=== PATIENT | female | born 1940 | race Caucasian/White ===

== ENCOUNTER 2017-03-02 19:48 | Emergency (ER) | payer OTHER ==
[2017-03-02 19:48] VITALS: BP 141/60; PULSE 77; RESP 20; TEMP 98.5; O2SAT 94
[~2017-03-02 19:48] MED LIST: ARIC5TAB PO; CEPH-460 PO; HYDR-3533 PO; LORA-373 PO; MEDR4PAK PO; NAME5TAB2 PO; SIMV20TA PO; VENTAER INH; VITA10007 PO; ZITH250T PO
[2017-03-02] MEDS ORDERED: SODIUM CHLORIDE 0.9% FLUSH 10 ML FLUSH IVF PRN (20:00)
[2017-03-02 20:08] LABS: AUTOMATED NEUTROPHIL # 3.9 TH/MM3 (1.8-7.7); BASOPHIL # 0.1 TH/MM3 (0-0.2); EOSINOPHIL # 0.1 TH/MM3 (0-0.4); EOSINOPHIL % 1.5 % (0.0-4.0); HEMATOCRIT 37.2 % (35.0-46.0); HEMO FLAGS DIFF FINAL; LYMPH % 29.5 % (9.0-44.0); MEAN CELL VOLUME 91.5 FL (80.0-100.0); MEAN CORPUSCULAR HEMOGLOBIN 30.7 PG (27.0-34.0); MEAN CORPUSCULAR HGB CONC 33.6 % (32.0-36.0); MONO % 10.6 % (0.0-8.0); NEUT % 57.4 % (16.0-70.0); PLATELET COUNT 226 TH/MM3 (150-450); RED BLOOD COUNT 4.07 MIL/MM3 (4.00-5.30); RED CELL DISTRIBUTION WIDTH 12.9 % (11.6-17.2); WHITE BLOOD COUNT 6.8 TH/MM3 (4.0-11.0)
[2017-03-02 20:14] LABS: CHLORIDE 107 MEQ/L (98-107); POTASSIUM 5.2 MEQ/L (3.5-5.1); SODIUM (NA) 140 MEQ/L (136-145)
[2017-03-02 20:18] LABS: ANION GAP 11 MEQ/L (5-15); BICARBONATE 22.4 MEQ/L (21.0-32.0); BLOOD UREA NITROGEN 40 MG/DL (7-18)
[2017-03-02 20:21] LABS: ALT (GPT) 26 U/L (10-53); AST (GOT) 33 U/L (15-37); GLOMERULAR FILTRATION RATE 29 ML/MIN (>89)
[2017-03-02 20:23] LABS: TOTAL BILIRUBIN ADULT 0.3 MG/DL (0.2-1.0)
[2017-03-02 20:24] LABS: ALKALINE PHOSPHATASE 78 U/L (45-117)
--- NOTE | 2017-03-02 20:26 | RADHPO ---
EXAM DATE/TIME: 03/02/2017 20:00 [facility] COMPARISON: No previous studies available for comparison. INDICATIONS : Lightheaded, finger numbness, history intercranial hemmorage RADIATION DOSE: 56.82 CTDIvol (mGy) MEDICAL HISTORY : None SURGICAL HISTORY : Craniotomy. Appendectomy.bladder surgery ENCOUNTER: Initial ACUITY: 1 day PAIN SCALE: 4/10 TECHNIQUE: Multiple contiguous axial images were obtained of the head. Using automated exposure control and adj ustment of the mA and/or kV according to patient size, radiation dose was kept as low as reasonably a chievable to obtain optimal diagnostic quality images. FINDINGS: CEREBRUM: The ventricles are normal for age. No evidence of midline shift, mass lesion, hemorrhage or acute in farction. No extra-axial fluid collections are seen. POSTERIOR FOSSA: The cerebellum and brainstem are intact. The 4th ventricle is midline. The cerebellopontine angle i s unremarkable. EXTRACRANIAL: The visualized portion of the orbits is intact. SKULL: The calvaria is intact. No evidence of skull fracture. CONCLUSION: Normal examination. Darien Bear MD on March 02, 2017 at 20:22 Board Certified Radiologist. This report was verified electronically.
[2017-03-02 20:27] VITALS: BP 113/59; PULSE 66; RESP 20; O2SAT 96
[2017-03-02 20:27] LABS: CREATINE KINASE 82 U/L (26-192)
--- NOTE | 2017-03-02 20:45 | PD ---
HPI . Weakness Chief Complaint: Neuro Symptoms/ Deficits Time Seen by Provider: 19:55 Travel History International Travel<30 days: No Contact w/Intl Traveler<30days: No History of Present Illness HPI Patient brought in by her daughter with a chief complaint of weakness. The daughter reports waxing and waning weakness for over a week. The daughter reports that the patient has fallen several times. The patient has previous similar symptoms related to UTI. The patient was seen by the urologist a little over a week ago and diagnosed with UTI and treated with Macrobid. She did not improve after a couple days on Macrobid. Her antibiotic was subsequently changed to Septra. She has been on the Septra for about a week. During this period time, the daughter states that the patient will have good days where she is walking without any difficulty at all. Then she will have bad days when she cannot stand up. The daughter reports that today is one of the days when the patient is too weak to stand up. The daughter reports no other associated symptoms. The daughter is unsure as to what may cause symptoms to be better 1 day and worse. There have been no obvious exacerbating or relieving factors. 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 PFSH Past Medical History Alzheimer's Disease: Yes Arthritis: Yes Asthma: No Autoimmune Disease: Yes Heart Rhythm Problems: No Cardiovascular Problems: No High Cholesterol: Yes Chest Pain: Yes Congestive Heart Failure: No COPD: Yes Cerebrovascular Accident: Yes (TIA 2010) Diabetes: No Diminished Hearing: No Gastrointestinal Disorders: No GERD: Yes Glaucoma: No Headaches: Yes Hepatitis: No Hiatal Hernia: No Hypertension: No Kidney Stones: No Musculoskeletal: No Neurologic: No Reproductive: No Respiratory: No Immunizations Current: Yes Myocardial Infarction: No Renal Failure: No Seizures: No Sleep Apnea: No Thyroid Disease: No Ulcer: Yes Menopausal: Yes Past Surgical History Abdominal Surgery: Yes (APPENDECTOMY) AICD: No Appendectomy: Yes Cardiac Surgery: No Ear Surgery: No Endocrine Surgery: Yes (appy) Eye Surgery: No Genitourinary Surgery: Yes (BLADDER SX) Gynecologic Surgery: No Neurologic Surgery: Yes (CRANIOTOMY WITH ICH AT 15 YRS OLD SP FALL FROM HORSE) Oral Surgery: No Pacemaker: No Thoracic Surgery: No Other Surgery: Yes (LEFT WRIST) Social History Alcohol Use: No Tobacco Use: No Substance Use: No Allergies-Medications (Allergen,Severity, Reaction): Coded Allergies: No Known Allergies (Unverified , 03/02/17) Reported Meds & Prescriptions Reported Meds & Active Scripts Active Reported Bactrim DS (Sulfamethoxazole-Trimethoprim) 800-160 Mg Tab 1 Tab PO BID Hydrocodone-Acetaminophen 10-325 mg Tab 1 Tab PO Q6H PRN Myrbetriq (Mirabegron) 25 Mg Tab 25 Mg PO DAILY Atorvastatin (Atorvastatin Calcium) 20 Mg Tab 20 Mg PO HS Escitalopram (Escitalopram Oxalate) 20 Mg Tab 20 Mg PO DAILY Ranitidine (Ranitidine HCl) 150 Mg Tab 150 Mg PO DAILY Namzaric (Memantine-Donepezil) 28-10 Mg Cap 1 Cap PO HS Omeprazole 40 Mg Cap 40 Mg PO DAILY Review of Systems Except as stated in HPI: all other systems reviewed are Neg General / Constitutional: No: Fever, Chills HENT: No: Rhinorrhea, Congestion Cardiovascular: No: Chest Pain or Discomfort Respiratory: No: Cough, Shortness of Breath Gastrointestinal: No: Nausea, Vomiting, Diarrhea, Loss of Appetite Neurologic: Positive: Weakness, No: Focal Abnormalities, Headache, Change in Mentation, Slurred Speech Physical Exam Narrative GENERAL: Elderly woman who is awake and alert and in no acute distress. SKIN: Warm and dry. HEAD: Atraumatic. Normocephalic. EYES: Pupils equal and round. Extraocular movements are intact. ENT: No nasal bleeding or discharge. Mucous membranes pink and moist. NECK: Trachea midline. Neck is supple. CARDIOVASCULAR: Regular rate and rhythm. Heart sounds are normal. RESPIRATORY: No accessory muscle use. Lungs are clear throughout. GASTROINTESTINAL: Abdomen soft, non-tender, nondistended. MUSCULOSKELETAL: No obvious deformities. No edema. NEUROLOGICAL: Awake and alert. Left sided facial weakness. Decreased wrinkling of the left forehead. She is able to pull herself from a lying to a sitting position using her left arm. She is able to hold both legs up off the bed equally. She has normal motor strength with plantar and dorsi flexion. Normal speech. PSYCHIATRIC: Appropriate mood and affect; insight and judgment normal. Data Data Last Documented VS Vital Signs Date Time Temp Pulse Resp B/P Pulse Ox O2 Delivery O2 Flow Rate FiO2 03/02/17 20:22 66 18 96 Nasal Cannula 2 03/02/17 19:48 98.5 141/60 Orders Electrocardiogram (03/02/17 19:55) Complete Blood Count With Diff (03/02/17 19:55) Comprehensive Metabolic Panel (03/02/17 19:55) Ckmb (Isoenzyme) Profile (03/02/17 19:55) Troponin I (03/02/17 19:55) Urinalysis - C+S If Indicated (03/02/17 19:55) Ct Brain W/O Iv Contrast(Rout) (03/02/17 19:55) Ecg Monitoring (03/02/17 19:55) Iv Access Insert/Monitor (03/02/17 19:55) Oximetry (03/02/17 19:55) Sodium Chloride 0.9% Flush (Ns Flush) (03/02/17 20:00) Cath For Specimen (03/02/17 19:55) Labs Laboratory Tests Test 03/02/17 03/02/17 19:50 20:45 White Blood Count 6.8 TH/MM3 Red Blood Count 4.07 MIL/MM3 Hemoglobin 12.5 GM/DL Hematocrit 37.2 % Mean Corpuscular Volume 91.5 FL Mean Corpuscular Hemoglobin 30.7 PG Mean Corpuscular Hemoglobin 33.6 % Concent Red Cell Distribution Width 12.9 % Platelet Count 226 TH/MM3 Mean Platelet Volume 8.7 FL Neutrophils (%) (Auto) 57.4 % Lymphocytes (%) (Auto) 29.5 % Monocytes (%) (Auto) 10.6 % Eosinophils (%) (Auto) 1.5 % Basophils (%) (Auto) 1.0 % Neutrophils # (Auto) 3.9 TH/MM3 Lymphocytes # (Auto) 2.0 TH/MM3 Monocytes # (Auto) 0.7 TH/MM3 Eosinophils # (Auto) 0.1 TH/MM3 Basophils # (Auto) 0.1 TH/MM3 CBC Comment DIFF FINAL Differential Comment Sodium Level 140 MEQ/L Potassium Level 5.2 MEQ/L Chloride Level 107 MEQ/L Carbon Dioxide Level 22.4 MEQ/L Anion Gap 11 MEQ/L Blood Urea Nitrogen 40 MG/DL Creatinine 1.70 MG/DL Estimat Glomerular Filtration 29 ML/MIN Rate Random Glucose 99 MG/DL Calcium Level 8.6 MG/DL Total Bilirubin 0.3 MG/DL Aspartate Amino Transf 33 U/L (AST/SGOT) Alanine Aminotransferase 26 U/L (ALT/SGPT) Alkaline Phosphatase 78 U/L Total Creatine Kinase 82 U/L Troponin I LESS THAN 0.02 NG/ML Total Protein 7.4 GM/DL Albumin 3.3 GM/DL Urine Color YELLOW Urine Turbidity CLEAR Urine pH 5.5 Urine Specific [place] 1.024 Urine Protein NEG mg/dL Urine Glucose (UA) NEG mg/dL Urine Ketones NEG mg/dL Urine Occult Blood NEG Urine Nitrite NEG Urine Bilirubin NEG Urine Leukocyte Esterase NEG Urine RBC 0-2 /hpf Urine WBC 3-5 /hpf Urine Squamous Epithelial 6-8 /hpf Cells Urine Bacteria NONE /hpf Microscopic Urinalysis Comment CULT NOT INDICATED MDM Medical Decision Making Medical Screen Exam Complete: Yes Emergency Medical Condition: Yes Interpretation(s) EKG shows a normal sinus rhythm with no ST segment elevation or depression. Differential Diagnosis Differential diagnosis of weakness includes but is not limited to infection, CVA , electrolyte disturbance, renal failure, hypoglycemia, UTI, ACS, acute blood loss Narrative Course Patient presents with weakness which has waxed and waned for the last week or so. She has been recently diagnosed with a UTI and has been treated with Macrobid followed by Nazanin. CBC & BMP Diagram 03/02/17 19:50 UA is negative. Cardiac enzymes are negative. Last Impressions Head CT 03/02/171954 Signed Impressions: Service Date/Time: February 20:00 - CONCLUSION: Normal examination. Darien Bear MD No acute etiology for her symptoms has been found. The patient and her daughter are comfortable and happy with discharge to home. Diagnosis Primary Impression: Weakness Patient Instructions: General Instructions, Weakness (ED) Disposition: 01 DISCHARGE HOME Condition: Stable Jessi Boswell MD March 02, 2017 20:45
[2017-03-02 20:50] LABS: BLOOD, URINE NEG (NEG); GLUCOSE,URINE NEG (NEG); KETONE, URINE NEG (NEG); NITRITE,URINE NEG (NEG); PH, URINE 5.5 (5.0-8.5)
[2017-03-02 20:57] LABS: URINE COLOR YELLOW (YELLW/STRAW)
[2017-03-02 20:58] LABS: COMMENT (UR) CULT NOT INDICATED; CULTURE IF INDICATED CULT NOT INDICATED; RBC, URINE 0-2 /hpf (0-3)
[2017-03-02] MEDS ORDERED: HYDR-3583 PO (21:02)
[2017-03-02] MEDS ORDERED: RANI150T PO (21:02)
[2017-03-02] MEDS ORDERED: MIRA25TA PO (21:02)
[2017-03-02] MEDS ORDERED: ESCI20TA PO (21:02)
[2017-03-02] MEDS ORDERED: MEMA1CAP2 PO (21:02)
[2017-03-02] MEDS ORDERED: ATOR20TA15 PO (21:02)
[2017-03-02] MEDS ORDERED: BACT800T5 PO (21:02)
[2017-03-02] MEDS ORDERED: OMEP40CA2 PO (21:02)
[2017-03-02 21:16] VITALS: BP 100/56; PULSE 64; RESP 20; O2SAT 97
[2017-03-02 22:00] VITALS: BP 110/64; PULSE 66; RESP 20
[2017-03-02 22:25] VITALS: BP 95/60
--- NOTE | 2017-03-03 06:38 | EKG ---
Date Performed: 03/02/2017 Time Performed: 20:21:10 PTAGE: 76 years EKG: BASELINE ARTIFACT PRESENT. Sinus rhythm Anterior T wave changes are nonspecific Borderline ECG NO SIGNIFICANT CHANGE FROM PRIOR ELECTROCARDI OGRAM. PREVIOUS TRACING : 11/10/2015 15.39 DOCTOR: Elvis Varela Interpretating Date/Time 03/03/2017 06:37:43
== END 2017-03-02 22:53 | disposition home or self-care (01) ==
LOC: PHED 19:48
DX: R53.1 Weakness (principal); K21.9 Gastro-esophageal reflux disease without esophagitis; J44.9 Chronic obstructive pulmonary disease, unspecified; E78.00 Pure hypercholesterolemia, unspecified; G30.9 Alzheimer's disease, unspecified; M19.90 Unspecified osteoarthritis, unspecified site; Z79.899 Other long term (current) drug therapy; Z86.73 Personal history of transient ischemic attack (TIA), and cerebral infarction without residual deficits
CPT/HCPCS: 70450; 80053; 81001; 82550; 84484; 85025; 93005; 99285; P9612

== ENCOUNTER 2017-06-09 12:23 | Emergency (ER) | payer OTHER, MEDICAID ==
[~2017-06-09] VITALS: Ht 147.3 cm; Wt 57.3 kg
[~2017-06-09 12:23] MED LIST changes: -ARIC5TAB PO; +ATOR20TA15 PO; +BACT800T5 PO; -CEPH-460 PO; +ESCI20TA PO; -HYDR-3533 PO; +HYDR-3583 PO; -LORA-373 PO; -MEDR4PAK PO; +MEMA1CAP2 PO; +MIRA25TA PO; -NAME5TAB2 PO; +OMEP40CA2 PO; +RANI150T PO; -SIMV20TA PO; -VENTAER INH; -VITA10007 PO; -ZITH250T PO
[2017-06-09 12:26] VITALS: BP 94/48; PULSE 58; RESP 14; TEMP 97.7; O2SAT 97
[2017-06-09 13:17] VITALS: BP 133/60; PULSE 61; RESP 18; O2SAT 97
[2017-06-09] MEDS ORDERED: ATOR40TA16 PO (13:22)
[2017-06-09 13:27] VITALS: BP 133/60; PULSE 61; RESP 18; TEMP 97.7; O2SAT 97
[2017-06-09] MEDS ORDERED: SODIUM CHLORIDE 0.9% FLUSH 10 ML FLUSH IV FLUSH PRN (13:30)
--- NOTE | 2017-06-09 13:31 | PD ---
HPI Chief Complaint: Syncope/Near-Syncope Time Seen by Provider: 13:17 Travel History International Travel<30 days: No Contact w/Intl Traveler<30days: No Traveled to known affect area: No History of Present Illness HPI Patient is a 77-year-old female with a history of fairly advanced dementia coming by her daughter to the emergency department for evaluation of syncopal episode. According the patient's daughter the patient had 2 syncopal episodes once yesterday. They're concerned because these episodes tend have the patient is urinary tract infection. The patient today hit her head on the concrete. Daughter states didn't actually witness the fall. Patient went the urologist a few days ago and had urinalysis is negative she some antibiotics and had some blood work drawn. She was started on empiric antibiotics however the UA was negative and they sent urine culture. I received a call today that her potassium was low and the recommended that she come in emergency department and be seen. Patient had not complained of any chest pain or shortness of breath to the caregiver. Patient has no complaints currently but is fairly confused. At baseline neuro status according to her daughter. PFSH Past Medical History Alzheimer's Disease: Yes Arthritis: Yes Asthma: No Autoimmune Disease: Yes Heart Rhythm Problems: No Cardiovascular Problems: Yes (HYPERCHOLESTEROLEMIA) High Cholesterol: Yes Chest Pain: Yes Congestive Heart Failure: No COPD: Yes Cerebrovascular Accident: Yes (TIA) Diabetes: No Diminished Hearing: No Gastrointestinal Disorders: No GERD: Yes Glaucoma: No Genitourinary: Yes (FREQUENCY) Headaches: Yes Hepatitis: No Hiatal Hernia: No Hypertension: No Kidney Stones: No Musculoskeletal: No Neurologic: Yes (BELLS PALSY) Reproductive: No Respiratory: No Immunizations Current: Yes Myocardial Infarction: No Renal Failure: No Seizures: No Sleep Apnea: No Thyroid Disease: No Ulcer: Yes ?: Not Menopausal: Yes Past Surgical History Abdominal Surgery: Yes AICD: No Appendectomy: Yes Cardiac Surgery: No Ear Surgery: No Endocrine Surgery: Yes Eye Surgery: No Genitourinary Surgery: Yes (BLADDER SX) Gynecologic Surgery: No Neurologic Surgery: Yes (CRANIOTOMY WITH ICH AT 15 YRS OLD SP FALL FROM HORSE) Oral Surgery: No Pacemaker: No Thoracic Surgery: No Other Surgery: Yes (LEFT WRIST) Social History Alcohol Use: No Tobacco Use: No Substance Use: No Allergies-Medications (Allergen,Severity, Reaction): Coded Allergies: No Known Allergies (Unverified , 06/09/17) Reported Meds & Prescriptions Reported Meds & Active Scripts Active Reported Atorvastatin (Atorvastatin Calcium) 40 Mg Tab 40 Mg PO HS Hydrocodone-Acetaminophen 10-325 mg Tab 1 Tab PO Q6H PRN Myrbetriq (Mirabegron) 25 Mg Tab 25 Mg PO DAILY Escitalopram (Escitalopram Oxalate) 20 Mg Tab 20 Mg PO DAILY Ranitidine (Ranitidine HCl) 150 Mg Tab 150 Mg PO DAILY Namzaric (Memantine-Donepezil) 28-10 Mg Cap 1 Cap PO HS Omeprazole 40 Mg Cap 40 Mg PO DAILY Review of Systems Except as stated in HPI: all other systems reviewed are Neg Physical Exam Narrative GENERAL: Well-developed well-nourished no apparent distress, pleasantly confused. SKIN: Focused skin assessment warm/dry. HEAD: Atraumatic. Normocephalic. No foley signs no raccoons eyes. EYES: Pupils equal and round. No scleral icterus. No injection or drainage. ENT: No nasal bleeding or discharge. Mucous membranes pink and moist. NECK: Trachea midline. No JVD. CARDIOVASCULAR: Regular rate and rhythm. No murmur appreciated. RESPIRATORY: No accessory muscle use. Clear to auscultation. Breath sounds equal bilaterally. GASTROINTESTINAL: Abdomen soft, non-tender, nondistended. Hepatic and splenic margins not palpable. MUSCULOSKELETAL: No obvious deformities. No clubbing. No cyanosis. No edema. Extremities are atraumatic and nontender and there is full nontender range of motion. NEUROLOGICAL: Awake and alert. No obvious cranial nerve deficits. Motor grossly within normal limits. Normal speech. PSYCHIATRIC: Appropriate mood and affect; insight and judgment normal. Data Data Last Documented VS Vital Signs Date Time Temp Pulse Resp B/P Pulse Ox O2 Delivery O2 Flow Rate FiO2 06/09/17 16:04 52 20 97/58 98 Room Air 06/09/17 13:27 97.7 Orders Basic Metabolic Panel (Bmp) (06/09/17 13:17) Complete Blood Count With Diff (06/09/17 13:17) Urinalysis - C+S If Indicated (06/09/17 13:17) Iv Access Insert/Monitor (06/09/17 13:17) Ecg Monitoring (06/09/17 13:17) Oximetry (06/09/17 13:17) Sodium Chloride 0.9% Flush (Ns Flush) (06/09/17 13:30) Electrocardiogram (06/09/17 13:17) Ct Brain W/O Iv Contrast(Rout) (06/09/17 ) Ct Cerv Spine W/O Contrast (06/09/17 ) Labs Laboratory Tests Test 06/09/17 13:30 White Blood Count 7.8 TH/MM3 Red Blood Count 4.04 MIL/MM3 Hemoglobin 12.6 GM/DL Hematocrit 38.3 % Mean Corpuscular Volume 94.7 FL Mean Corpuscular Hemoglobin 31.3 PG Mean Corpuscular Hemoglobin 33.0 % Concent Red Cell Distribution Width 14.6 % Platelet Count 168 TH/MM3 Mean Platelet Volume 8.9 FL Neutrophils (%) (Auto) 70.8 % Lymphocytes (%) (Auto) 19.7 % Monocytes (%) (Auto) 7.9 % Eosinophils (%) (Auto) 1.0 % Basophils (%) (Auto) 0.6 % Neutrophils # (Auto) 5.5 TH/MM3 Lymphocytes # (Auto) 1.5 TH/MM3 Monocytes # (Auto) 0.6 TH/MM3 Eosinophils # (Auto) 0.1 TH/MM3 Basophils # (Auto) 0.0 TH/MM3 CBC Comment DIFF FINAL Differential Comment Urine Color YELLOW Urine Turbidity CLEAR Urine pH 5.5 Urine Specific [place] 1.020 Urine Protein TRACE mg/dL Urine Glucose (UA) NEG mg/dL Urine Ketones NEG mg/dL Urine Occult Blood NEG Urine Nitrite NEG Urine Bilirubin NEG Urine Urobilinogen LESS THAN 2.0 MG/DL Urine Leukocyte Esterase NEG Urine RBC LESS THAN 1 /hpf Urine WBC 4 /hpf Urine Squamous Epithelial 1 /hpf Cells Microscopic Urinalysis Comment CULT NOT INDICATED Sodium Level 141 MEQ/L Potassium Level 4.2 MEQ/L Chloride Level 107 MEQ/L Carbon Dioxide Level 25.8 MEQ/L Anion Gap 8 MEQ/L Blood Urea Nitrogen 35 MG/DL Creatinine 1.32 MG/DL Estimat Glomerular Filtration 39 ML/MIN Rate Random Glucose 178 MG/DL Calcium Level 8.6 MG/DL [facility] Medical Decision Making Medical Screen Exam Complete: Yes Emergency Medical Condition: Yes Interpretation(s) EKG shows normal sinus rhythm with a heart rate of 58, normal axis normal R- wave progression. Nonspecific T-wave flattening in nearly every lead. Intervals otherwise within normal limits. This borderline EKG. Differential Diagnosis Syncope, fall, head injury, neck injury, hypokalemia, urinary tract infection. Narrative Course 77-year-old female roomed in emergency department, initial workup including EKG electrolytes UA CT head and C-spine were all unremarkable. The patient does have a minimal elevation of her creatinine to 1.3. This can be followed up as an outpatient.. Last [address] 06/09/17 0000 Signed Impressions: Service Date/Time: Friday, June 09, 2017 15:02 - CONCLUSION: Negative noncontrast CT. Sundeep Perez MD Cervical Spine CT 06/09/17 0000 Signed Impressions: Service Date/Time: Friday, June 09, 2017 15:03 - CONCLUSION: Negative trauma CT. Sundeep Perez MD I discussed results with the patient's daughter and the patient was offered admission to the hospital however given her dementia was agreed that she may worsen while in the hospital and could pursue a syncopal workup as an outpatient. I think this is very reasonable this time to pursue an outpatient workup. Patient will be discharged to daughter's care and discussed return to ED criteria and fall prevention. Diagnosis Primary Impression: Generalized weakness Additional Impression: Closed head injury Disposition: DISCHARGE HOME Condition: Stable Tavo Whiteside MD Jun 09, 2017 13:31
[2017-06-09 13:52] LABS: AUTOMATED NEUTROPHIL # 5.5 TH/MM3 (1.8-7.7); BASOPHIL % 0.6 % (0.0-2.0); EOSINOPHIL # 0.1 TH/MM3 (0-0.4); HEMATOCRIT 38.3 % (35.0-46.0); HEMO FLAGS DIFF FINAL; LYMPH % 19.7 % (9.0-44.0); LYMPHOCYTE # 1.5 TH/MM3 (1.0-4.8); MEAN CELL VOLUME 94.7 FL (80.0-100.0); MEAN CORPUSCULAR HEMOGLOBIN 31.3 PG (27.0-34.0); MONO % 7.9 % (0.0-8.0); NEUT % 70.8 % (16.0-70.0); PLATELET COUNT 168 TH/MM3 (150-450); RED BLOOD COUNT 4.04 MIL/MM3 (4.00-5.30); RED CELL DISTRIBUTION WIDTH 14.6 % (11.6-17.2); WHITE BLOOD COUNT 7.8 TH/MM3 (4.0-11.0)
[2017-06-09 14:01] LABS: BLOOD, URINE NEG (NEG); COMMENT (UR) CULT NOT INDICATED; CULTURE IF INDICATED CULT NOT INDICATED; GLUCOSE,URINE NEG (NEG); KETONE, URINE NEG (NEG); NITRITE,URINE NEG (NEG); PH, URINE 5.5 (5.0-8.5); SQUAMOUS EPITHELIAL CELL URINE 1 /hpf (0-5); URINE COLOR YELLOW (YELLW/STRAW)
[2017-06-09 14:16] LABS: BICARBONATE 25.8 MEQ/L (21.0-32.0); POTASSIUM 4.2 MEQ/L (3.5-5.1)
--- NOTE | 2017-06-09 15:13 | RADRPT ---
EXAM DATE/TIME: 06/09/2017 15:02 [facility] COMPARISON: CT BRAIN W/O CONTRAST, March 02, 2017, 20:00. INDICATIONS : Syncope with fall. RADIATION DOSE: 56.35 CTDIvol (mGy) MEDICAL HISTORY : Chronic obstructive pulmonary disease. Cerebrovascular disease. Dementia. SURGICAL HISTORY : Craniotomy. Appendectomy. ENCOUNTER: Initial ACUITY: 1 day PAIN SCALE: 0/10 LOCATION: cranial TECHNIQUE: Multiple contiguous axial images were obtained of the head. Using automated exposure control and adjustment of the mA and/or kV according to patient size, radiation dose was kept as low as reasonably achievable to obtain optimal diagnostic quality images. DICOM format image data is av ailable electronically for review and comparison. FINDINGS: CEREBRUM: The ventricles are normal for age. No evidence of midline shift, mass lesion, hemorrha ge or acute infarction. No extra-axial fluid collections are seen. POSTERIOR FOSSA: The cerebellum and brainstem are intact. The 4th ventricle is midline. The cer ebellopontine angle is unremarkable. EXTRACRANIAL: The visualized portion of the orbits is intact. SKULL: The calvaria is intact. No evidence of skull fracture. CONCLUSION: Negative noncontrast CT. Sundeep Perez MD on June 09, 2017 at 15:11 Board Certified Radiologist. This report was verified electronically.
--- NOTE | 2017-06-09 15:41 | RADRPT ---
EXAM DATE/TIME: 06/09/2017 15:03 [facility] COMPARISON: CT CERVICAL SPINE W/O CONTRAST, October 13, 2016, 16:02. INDICATIONS : Syncope with fall. RADIATION DOSE: 30.68 CTDIvol (mGy) MEDICAL HISTORY : Chronic obstructive pulmonary disease. Hypertension. Dementia. SURGICAL HISTORY : Appendectomy. Craniotomy. ENCOUNTER: Initial ACUITY: 1 day PAIN SCALE: 0/10 LOCATION: neck TECHNIQUE: Volumetric scanning of the cervical spine was performed. Multiplanar reconstructions i n the sagittal, coronal and oblique axial planes were performed. Using automated exposure control a nd adjustment of the mA and/or kV according to patient size, radiation dose was kept as low as reason ably achievable to obtain optimal diagnostic quality images. DICOM format image data is available e lectronically for review and comparison. FINDINGS: The sagittal reconstructions demonstrate normal alignment and normal prevertebral soft tissues. The d ens is intact and there is a normal atlantoaxial relationship. Degenerative disc changes are again no carolyn. The axial images demonstrate that the vertebral bodies and posterior elements are intact. The soft ti ssues are within normal limits. There is no evidence of acute fracture or malalignment. CONCLUSION: Negative trauma CT. Sundeep Perez MD on June 09, 2017 at 15:32 Board Certified Radiologist. This report was verified electronically.
[2017-06-09 16:04] VITALS: BP 97/58; PULSE 52; RESP 20; O2SAT 98
--- NOTE | 2017-06-10 15:50 | EKG ---
Date Performed: 06/09/2017 Time Performed: 13:22:48 PTAGE: 77 years EKG: SINUS BRADYCARDIA NONSPECIFIC T-WAVE ABNORMALITY BORDERLINE ECG PREVIOUS TRACING : 03/02/2017 20.21 Since previous tracing, no significant change noted DOCTOR: Lester Zepeda Interpretating Date/Time 06/10/2017 15:49:24
== END 2017-06-09 16:49 | disposition home or self-care (01) ==
LOC: NEPC 12:23
DX: S09.90XA Unspecified injury of head, initial encounter (principal); W19.XXXA Unspecified fall, initial encounter; R53.1 Weakness; G30.9 Alzheimer's disease, unspecified; F02.80 Dementia in other diseases classified elsewhere, unspecified severity, without behavioral disturbance, psychotic disturbance, mood disturbance, and anxiety; E78.00 Pure hypercholesterolemia, unspecified; J44.9 Chronic obstructive pulmonary disease, unspecified
CPT/HCPCS: 70450; 72125; 80048; 81001; 85025; 93005; 99285